=== PATIENT | female | born 2000 | race Two or more races ===

== ENCOUNTER 2025-04-25 10:54 | Outpatient (AMB) | payer OTHER, SELFPAY ==
--- NOTE | 2025-04-25 10:55 | MHC.PC.OV ---
Vital Signs 04/25/25 11:02 Height 5 ft 5 in Weight 126 lb 6 oz BMI 21.0 BP 118/68 Blood Pressure Location Lt brachial Position Sitting Respiration 12 Pulse 81 Pulse Source Pulse Oximeter Temp 97.7 F Temp Source Oral Pulse Oximetry (%) 99 Oxygen Delivery Method Room Air Intake Visit Reasons: CPE Intake Note: New patient to establish care and cpe. Cashier And Waiter/Waitress Required: No Allergies No Known Allergies Allergy (Verified 04/25/25 11:08) Medication List - Last Reconciled 04/25/25 by DANYELLE Huang No Known Home Meds Tobacco use date assessed: 04/25/25 Dental Screening Dental Screen Date: 04/25/25 Did you have a dental visit in the last 12 months?: Yes Did you have a dental problem in the last 6 months where you did not have access to dental care?: No Was dental information given to patient?: Patient has dentist HPI HPI Comments History of Present Illness Details Vanessa 25 y/o f with ALEXANDRA, so stated ADHD, hx of MVP Surgery: wisdom tooth extraction Fhx: Mom alive and well; Dad alive and well. 2 1/2 brothers alive and well; No children. Social: Lives w/ boyfriend. 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 - Symptoms, including palpitations with some associated pain, began around 2018. - She was previously followed by a shift manager in [place] and was prescribed medication to be taken as needed, but she reports never taking it. - The last cardiac imaging was an echocardiogram performed approximately a year and a half ago. - She does not have her medical records from [place] available today but may be able to obtain them. Attention-Deficit/Hyperactivity Disorder (ADHD): - The patient reports a diagnosis of ADHD from four years ago, and also possibly from a therapist about a year ago. - She has never been on medication for this condition. - The patient has requested medical records from a therapist she saw a year ago but has not yet received them. - She expresses a desire for medication, specifically a non-stimulant like Strattera, as stimulants are contraindicated due to her heart condition. - She does not believe therapy is effective for her ADHD and is not interested in counseling. Anxiety: - The patient screened positive for anxiety and agrees with this finding. - She denies symptoms of depression. - She has never been on medication for anxiety. - She was evaluated for social anxiety with a therapist a year ago but is unsure if a formal diagnosis was made. Past Medical History - Mitral valve prolapse, diagnosed around 2018, with associated palpitations. - Attention-Deficit/Hyperactivity Disorder (ADHD), diagnosed 4 years ago. - Anxiety, possibly social anxiety. - History of fainting spells 3 or 4 years ago when not eating. - No known allergies. Past Surgical History - [place] teeth extraction. - Denies any other surgeries. Family History - Mother: Alive and healthy. - Father: Does not have any medical conditions. - Siblings: Two half-brothers, alive and well. Social History - The patient recently relocated from [place] in October of last year. - She lives with her boyfriend and feels safe at home. 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 - She will be studying full-time starting in May. - She has no children. Health Maintenance - Tdap vaccination: Last received in 2018, up to date. - Influenza vaccination: Last received in 2021; patient declined to update at this time. - Women's health: Recently established care with a head teller at [facility] about two to three weeks ago. - A Pap smear and STD testing were performed, and all results were normal. - Vision: Wears glasses and has established care with an eye doctor. Review of Systems - Cardiovascular: Reports intermittent palpitations with some associated pain. - Constitutional: Reports history of feeling weak or fainting if she does not eat. - Psychiatric: Reports symptoms of anxiety and social anxiety. Denies depression. - Gastrointestinal: Denies issues with bowel movements. - Genitourinary: Denies issues with urination. Physical Exam General: Well developed, well nourished, in no acute distress. Appears stated age. Head: Normocephalic, atraumatic. Eyes: Pupils are equal, round and reactive to light and accommodation. Conjunctivae are clear. Scleras nonicteric bilat. Vision grossly normal. Ears: TMs clear AU, EACS WNL Nose: Patent, without discharge. Neck: No carotid bruit bilat. Supple, no adenopathy or thyromegaly. Breast: Edu on SBE Lungs: Clear to auscultation bilaterally. No rales, rhonchi or wheeze noted. Good air flow in all everett. Heart: Regular rate and rhythm. No murmurs, click, rubs or gallops are noted. Patient reports a history of mitral valve prolapse. Abdomen: Bowel sounds present in all quadrants. The abdomen is soft, nontender, with no masses or organomegaly noted. No hernias are noted. : Deferred. Reviewed recommendations for routine MILITARY SOURCE OPERATIONS SPECIALIST. Patient recently visited a head teller at [facility] in [place], where a Pap smear was performed and results were normal. Pulses: Peripheral pulses are equal and palpable bilaterally. Extremities: No clubbing, cyanosis nor edema is noted. Neurologic: Gait and station normal. Cranial Nerves 2-12 intact. Motor strength grossly symmetrical and intact. No sensory loss. Balance normal. Skin: No rashes, ulcers, or lesions noted. Turgor is good. Skin color is good. Hair and nails are without abnormalities. Valderrama angiomas noted, which are familial. Psych: Normal eye contact, affect and mood appropriate, and normal interactions. Patient is alert and appropriate to context. Reports ADHD diagnosis and positive screenings for anxiety, but denies depression. Results - Pap smear and STD testing: Performed 2-3 weeks ago and reported as normal. Labs pending Medical Decision Making The patient is a 25-year-old female establishing care today. She has several active issues, primarily a history of mitral valve prolapse (MVP) and a self-reported diagnosis of ADHD for which she seeks treatment. Regarding her ADHD, the patient is requesting non-stimulant medication (Strattera) due to her MVP. To proceed with treatment, a formal psychiatric evaluation is required to confirm the diagnosis, as I cannot prescribe based solely on subjective reports or unverified prior diagnoses. Therefore, I am placing a referral to psychiatry for a diagnostic workup. We will proceed with this referral unless the patient provides official medical records detailing a formal diagnostic evaluation, in which case the referral can be canceled. For her MVP, it is essential to review her past cardiology records, including the echocardiogram results, to determine the need for further evaluation or management now that she is under my care. In addition, her screenings were positive for anxiety, but she is not interested in counseling and has not been on medication for it previously. Routine baseline labs will be ordered to screen for underlying conditions. A follow-up visit is scheduled in 8-12 weeks to review records and lab results and adjust the plan accordingly. Plan 1. Wellness Visit And Establishment Of Care - Patient instructed to obtain medical records from her previous shift manager in [place] regarding her mitral valve prolapse for review. - Routine baseline screening labs will be ordered. - Patient will sign up for the [facility] patient portal to communicate with the office and view lab results. - Schedule a follow-up appointment in 8-12 weeks, with the possibility of a sooner appointment if records are received and reviewed. 2. Attention-Deficit/Hyperactivity Disorder (Adhd) - A referral will be placed for a psychiatric evaluation to confirm the diagnosis of ADHD and for a medication assessment. - The patient was advised that this referral will be canceled if she can provide formal diagnostic records that are sufficient for management. - Once a formal diagnosis is established, either by the psychiatrist or through reviewed records, medication management can be initiated in this office. 3. Mitral Valve Prolapse - The patient will request her cardiology records from [place], including her last echocardiogram report. - Review of these records is necessary to determine the next steps for her cardiac care. 4. Anxiety - Patient screened positive for anxiety. - She declined counseling at this time. - Management will be deferred pending the psychiatric evaluation for ADHD, which may also address anxiety symptoms. Patient Instructions - Get baseline screening lab work done today in the office. - Contact your previous doctors in [place] to get your medical records for your heart condition (mitral valve prolapse) and your ADHD diagnosis. - Please physically bring these records to the front office associate so I can review them. - You will be contacted by our referral team to set up an appointment with a psychiatrist for an ADHD evaluation. - Look for an email from our office to sign up for the [facility] adam. You must click the link within 24 hours to create your account for messaging me, viewing lab results, and managing appointments. - Schedule your next appointment at the front office associate for 8 to 12 weeks from now. - If you feel weak or faint during the blood draw, please tell the laboratory scientist so you can lie down. Consent Patient was informed and verbally consented to the use of an ambient scribe for clinic note documentation during this visit. An additional 30 minutes was spent addressing the problem(s) noted at todays visit. This includes time spent before the visit reviewing the chart, time spent during the visit, and time spent after the visit on documentation reviewing laboratory results, diagnostic imaging, medications, performing a medically necessary evaluation, counseling on diagnoses, care coordination, ordering appropriate tests, ordering appropriate medications, review of tests performed by other providers, reporting test results with the patient, communication with other healthcare providers. [facility] Medical History (Updated 04/25/25 @ 11:29 by Katelyn Oviedo [facility]) Acid reflux ADHD Surgical History (Updated 04/25/25 @ 11:09 by Windy Gaytan MA) Hx of colonoscopy (~2022) Family History (Updated 04/25/25 @ 11:07 by Windy Gaytan MA) Maternal Grandmother Diabetes HTN (hypertension) Cancer Cardiovascular disease Mother Diabetes HTN (hypertension) Thyroid disorder Cardiovascular disease Paternal Grandfather Cardiovascular disease Social History (Updated 04/25/25 @ 10:56 by Windy Gaytan MA) Household Members: Significant Other Both parents involved: No Caregiver staying overnight: No Housing: Apartment Are you a primary managed care nurse to a significant other at home: No Do you presently have visiting nurse or other home services: No 75 years or older and lives alone: No Alcohol intake: current Alcohol intake frequency: a few times a month Patient Tobacco Use Status: Never used Tobacco e-Cigarette/Vaping Use: Never Used Second Hand Smoke Exposure: No service: No Current occupational status: employed 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 1. Little interest or pleasure in doing things: several days 2. Feeling down, depressed, or hopeless: not at all 3. Trouble falling or staying asleep, or sleeping too much: not at all 4. Feeling tired or having little energy: nearly every day 5. Poor appetite or overeating: not at all 6. Feeling bad about yourself - or that you are a failure or have let yourself or your family down: not at all 7. Trouble concentrating on things, such as reading the newspaper or watching television: nearly every day 8. Moving or speaking so slowly that other people could have noticed. Or the opposite - being so fidgety or restless that you have been moving around a lot more than usual: several days 9. Thoughts that you would be better off or of hurting yourself in some way: not at all Total score: 8 Depression Screening Interpretation: Positive Depression Screening Follow-up: Existing condition and Community Mental Health Worker F/U Depression Screening Done: Yes 75196 - PHQ-9 Billing: Yes Source: Developed by Drs. Garo Marx, Pari Marsh, Demario Rojas and colleagues, with an educational isidro from [employer]. Thrive Questionnaire Date Thrive assessed: 04/25/25 I am a: Patient What is your living situation today?: I have a steady place to live Within the past 12 months, did the food you bought not last and you didn't have the money to get more?: Never true Within the past 12 months, did you worry whether your food would run out before you got money to buy more?: Never true Do you have trouble paying for medicines?: No Do you have trouble getting transportation to medical appointments?: No Do you have trouble paying your heating and electricity bill?: No Do you have trouble taking care of your child, family member or friend?: No Do you have trouble with day-to-day activities such as bathing, preparing meals, shopping, managing finances, etc.?: No Are you currently unemployed and looking for a job?: No Are you interested in more education?: Yes Please select the resources that you would like help with: None Currently or been in a relationship where the following occur: No concerns reported THRIVE Score: 0 AUDIT C Alcohol Use Questionnaire (AUDIT-C) 1. How often do you have a drink containing alcohol?: 2-4 times a month 2. How many drinks containing alcohol do you have on a typical day when you are drinking?: 1 or 2 3. How often do you have six or more drinks on one occasion?: Never Total Score: 2 Score Reviewed/Action Taken: Yes ALEXANDRA-7 AMB Questionnaire ALEXANDRA-7 Date ALEXANDRA - 7 assessed: 04/25/25 Feeling nervous, anxious, or on edge: 1 = Several days Not being able to stop or control worryin = Several days Worrying too much about different things: 1 = Several days Trouble relaxin = Several days Being so restless that it is hard to sit still: 1 = Several days Becoming easily annoyed or irritable: 3 = Nearly every day Feeling afraid as if something awful might happen: 0 = Not at all Total ALEXANDRA-7 score (0-4 normal; 5-9 mild; 10-14 moderate; 15-21 severe): 8 Source: Developed by Drs. Garo Marx, Pari Marsh, Demario Rojas and colleagues, with an educational isidro from [employer]. ALEXANDRA-7 Assessment Billing ALEXANDRA-7 Assessment Tool: ALEXANDRA-7 Assessment 52446 Physical exam (Primary Care) Vital Signs: Last Vital Signs Temp 97.7 F 04/25/25 11:02 Pulse 81 04/25/25 11:02 Resp 12 04/25/25 11:02 BP 118/68 04/25/25 11:02 Pulse Ox 99 04/25/25 11:02 Oxygen Delivery Method Room Air 04/25/25 11:02 BMI result Body Mass Index 21.0 Tobacco/Smoking Status: Tobacco use Status Tobacco use date assessed 04/25/25 04/25/25 10:58 Patient Tobacco Use Status Never used Tobacco 04/25/25 10:58 e-Cigarette/Vaping Use Never Used 04/25/25 10:58 PHQ-9: PHQ-9 Score PHQ-9: Total score 8 04/25/25 10:58 Depression Screening Interpretation: Positive Depression Screening Follow-up: Existing condition and Community Mental Health Worker F/U Thrive Assessment: Date of Thrive Assessment Date Thrive assessed 04/25/25 04/25/25 10:58 Currently or been in a relationship where the following occur: No concerns reported Coding Level of Care Code New Pt Level 3 (31559) New Pt Prev Care 18-39yr(58977 Diagnoses Encounter to establish care with new provider Z76.89 ALEXANDRA (generalized anxiety disorder) F41.1 ADHD (attention deficit hyperactivity disorder) evaluation Z13.39 Influenza vaccination declined Z28.21 History of Papanicolaou smear of cervix Z92.89 Laboratory exam ordered as part of routine general medical examination Z00.00 Adult general medical exam Z00. History of mitral valve prolapse Z86.79 Additional Codes ALEXANDRA-7 Assessment Billing - ALEXANDRA-7 Assessment Tool: ALEXANDRA-7 Assessment 76760 ([id number]) PHQ-9 - 47498 - PHQ-9 Billing: Yes ([id number]) Assessment & Plan Assessment & Plan (1) Encounter to establish care with new provider: Code(s): Z76.89 - Persons encountering health services in other specified circumstances (2) ALEXANDRA (generalized anxiety disorder): Code(s): F41.1 - Generalized anxiety disorder Category: Medical (3) ADHD (attention deficit hyperactivity disorder) evaluation: Code(s): Z13.39 - Encounter for screening examination for other mental health and behavioral disorders Category: Medical (4) Influenza vaccination declined: Onset Date: ~04/25/25 Code(s): Z28.21 - Immunization not carried out because of patient refusal Category: Medical (5) History of Papanicolaou smear of cervix: Onset Date: ~03/2025 Comment: [facility] [place] Code(s): Z92.89 - Personal history of other medical treatment Category: Medical (6) Laboratory exam ordered as part of routine general medical examination: Code(s): Z00.00 - Encounter for general adult medical examination without abnormal findings Category: Medical (7) Adult general medical exam: Onset Date: ~04/25/25 Code(s): Z00.00 - Encounter for general adult medical examination without abnormal findings Category: Medical (8) History of mitral valve prolapse: Code(s): Z86.79 - Personal history of other diseases of the circulatory system Category: Medical Plan . Orders: Orders Lipid Panel Today Z00.00 - Encounter for general adult medical examination without abnormal findings Vitamin B12 and Folate Today Z00.00 - Encounter for general adult medical examination without abnormal findings Hemoglobin A1c Today Z00.00 - Encounter for general adult medical examination without abnormal findings Complete Blood Count no Diff Today Z00.00 - Encounter for general adult medical examination without abnormal findings Comprehensive Met. Panel Today Z00.00 - Encounter for general adult medical examination without abnormal findings Microalbumin, Random (w Creat) Today Z00.00 - Encounter for general adult medical examination without abnormal findings TSH reflex Free T4 Today Z00.00 - Encounter for general adult medical examination without abnormal findings Vitamin D 25-OH Total Today Z00.00 - Encounter for general adult medical examination without abnormal findings Referrals Nurse Navigator Referral F33.1 - Major depressive disorder, recurrent, moderate, F41.1 - Generalized anxiety disorder, Z13.39 - Encounter for screening examination for other mental health and behavioral disorders Patient Instructions: Walk-In Care (Urgent Care): We Make it Easy Walk-in for urgent medical issues such as: ? Seasonal Allergies ? Insect Bites ? Cough ? Diarrhea ? Acute Asthma Attacks ? Back, Knee or Joint Pain ? Ear Infection ? Fever without a Rash ? Headaches ? Nausea ? [place] Eye, Rash or Skin Irritation ? Sore Throat ? Sports Physicals ? Vomiting Most insurances are accepted. Patients do not need to be part of the [facility] to seek care at the walk-in clinic. Locations [address] [place] [address] Open Wednesday through Wednesday 8am-5pm *Hours may vary due to staffing availability. To confirm Walk-In Care hours please call. [facility] , [place] [address] ? [phone] [facility] Walk-In Care in [place] provides services to ages 18 and over. Open Wednesday-Wednesday: 7 a.m. to 5 p.m. and Wednesday: 9 a.m. to 3 p.m.* *Hours may vary due to staffing availability. To confirm Walk-In Care hours in [place], please call [phone]. [address] [place] [address] ? [phone] [facility] Walk-In Care in [place] provides services to ages 12 and over. Open Wednesday-Wednesday: 8 a.m. to 5 p.m. Hours may vary due to staffing availability. To confirm Walk-In Care hours in [place], please call [phone]. LABORATORY SERVICES: [facility] ? Primary Location [address] [place] [address] Wednesday through Wednesday 6:00 AM ? 5:00 PM Wednesday 7:00 AM ? 11:00 AM* [phone] The [facility] is centrally located near the front entrance of the [facility] for easy outpatient access. Convenient parking is provided for outpatients. *Hours may vary due to staffing availability. To confirm Laboratory hours for any location, please call [phone]. Offsite Location For your convenience, we offer offsite laboratory draw stations at the following locations: [address] [facility] [place] [address] [facility] [address], [place] Wednesday through Wednesday 7:30 AM ? 1:00 PM* [phone] *Hours may vary due to staffing availability. To confirm Laboratory hours for any location, please call [phone]. [place] ? [facility] [address] [facility], [place] Wednesday through Wednesday 6:00 AM ? 3:30 PM* Wednesday 6:30 AM ? 3 PM* [phone] *Hours may vary due to staffing availability. To confirm Laboratory hours for any location, please call [phone]. [address] [facility] Wednesday through Wednesday 7:30 AM ? 4:00 PM* [phone] *Hours may vary due to staffing availability. To confirm Laboratory hours for any location, please call [phone] [place] [address] Wednesday through 9:00 AM ? 4:00 PM* *Hours may vary due to staffing availability. To confirm Laboratory hours for any location, please call [phone]. Appointments are not necessary. Walk-ins are welcome. Like all the departments throughout the [facility], our Lab undergoes frequent reviews to ensure the quality and accuracy of test results, and our staff takes special pride in its status as a nationally accredited facility. Patient Portal: [facility] ONE PATIENT. ONE RECORD. BETTER CARE. [facility] has a fully integrated, cutting-edge mobile electronic health information system that has revolutionized the way we care for our patients and manage our organization. This system improves communication and coordination enabling us to provide safe, higher-quality care, and an overall positive experience for staff and patients. Our first priority, as always, is to deliver the highest quality care possible. The system is running in the background supporting that priority. This portal is for all [facility] services and practices. If you are experiencing any technical difficulties with enrolling or logging into the Patient Portal please complete the [facility] Patient Portal Technical Support Form. [facility] now offers a new secure on-line interactive tool for patients to review their health information ? ?Patient Portal. This interactive web portal will enable patients and their families to take an active role in their care by providing easy, secure access to their health information via the internet. The Patient Portal provides patients with instant access to their health information, including laboratory results, medications, allergies, demographic information, visit history, and more. In addition to managing their own care, parents and health care proxies with authorized consent will appreciate the ability to access the records of those individuals for whom they provide care. Please note: if you wish to gain access (Proxy) to another patient?s portal, you will be required to come to the Medical Records Department in person at [facility]. Both the patient giving proxy access and the proxy will need to provide photo identification and complete the appropriate authorization. The Patient Portal also allows track their appointments online. The [facility] Patient Portal also saves patients time by allowing them to submit updates to their demographic and contact information prior to their visits. Portal email notifications will also alert patients to any new activity on their portal, such as test results and new appointments. In order to initially enroll in the [facility] Patient Portal, you will need to enter some required information including the following: your [facility] Medical Record number your personal home email address name date of Please note: In order to enroll in the [facility] Patient Portal, we need to have your email address on file in your electronic medical record. ?The email address needs to be specific for one person (yourself) in order for your Portal enrollment to be successful. ?You can update your email address in person with our Registration staff when you are registering for a hospital visit. ?Otherwise, you will need to come to the Health Information Management (Medical Records) Department at [facility]. ?We are open from Wednesday ? Wednesday from 7:30 a.m. ? 4:30 p.m. ?You will be required to present a photo id. Once you have successfully enrolled in the Patient Portal, you will receive a one-time user id and password for the Portal, sent to your email address. ?This will allow you to log into the Patient Portal within 99 hrs and reset your own logon id and password, and define personal security questions. ?Once your permanent login and password have been set, you can log into the [facility] Patient Portal at any time via the blue button above or from the Portal Logon button on any page of the [facility] website. [facility] and [facility] encourage all of our patients to enroll in Patient Portal as it presents a valuable opportunity for patients and their families to actively participate in their care and stay healthy Welcome to [facility]. ?We look forward to working with you. Health screenings for women You should visit your health care provider from time to time, even if you are healthy. The purpose of these visits is to: Screen for medical issues Assess your risk for future medical problems Encourage a healthy lifestyle Update vaccinations and other preventive care services Help you get to know your provider in case of an illness Information Even if you feel fine, you should still see your provider for regular checkups. These visits can help you avoid problems in the future. For example, the only way to find out if you have high blood pressure is to have it checked regularly. High blood sugar and high cholesterol levels also may not have any symptoms in the early stages. A simple blood test can check for these conditions. There are specific times when you should see your provider or receive specific health screenings. The [place] Preventive Services Task Force publishes a list of recommended screenings. Below are screening guidelines for women ages 18 to 39. BLOOD PRESSURE SCREENING Your blood pressure should be checked at least once every 3 to 5 years if: Your blood pressure is in the normal range (top number less than 120 mm Hg and bottom number less than 80 mm Hg) You don't have risk factors for high blood pressure Ask your provider if you need your blood pressure checked more often if: The top number is 120 to 129 mm Hg or the bottom number is 70 to 79 mm Hg You have diabetes, heart disease, kidney problems, are overweight, or have certain other health conditions You have a first-degree relative with high blood pressure You are Black You had high blood pressure during a If the top number is 130 mm Hg or greater or the bottom number is 80 mm Hg or greater, this is considered stage 1 hypertension. Schedule an appointment with your provider to learn how you can reduce your blood pressure. Watch for blood pressure screenings in your area. Ask your provider if you can stop in to have your blood pressure checked. BREAST CANCER SCREENING Experts do not agree about the benefits of breast self-exams in finding breast cancer or saving lives. Talk to your provider about what is best for you. A screening mammogram is not recommended for most women under age 40. Your provider may discuss and recommend mammograms, MRI scans, or ultrasounds if you have an increased risk for breast cancer, such as: A mother or sister who had breast cancer at a young age (most often starting screening earlier than the age the close relative was diagnosed) You carry a high-risk genetic marker CERVICAL CANCER SCREENING Cervical cancer screening should start at age 21 years unless your provider advises otherwise. After the first test: Women ages 21 through 29 should have a Pap test every 3 years. Exoprts do not agree on whether HPV testing is recommended for this age group. Women ages 30 through 65 should be screened with either a Pap test every 3 years or the HPV test every 5 years or both tests every 5 years (called cotesting ). Women who have been treated for precancer (cervical dysplasia) should continue to have Pap tests for 20 years after treatment or until age 65, whichever is longer. If you have had your uterus and cervix removed (total hysterectomy), and you have not been diagnosed with cervical cancer or precancer (high grade cervical neoplasia), you do not need cervical cancer screening. CHOLESTEROL SCREENING Cholesterol screening should begin at: Age 45 for women with no known risk factors for coronary heart disease Age 20 for women with known risk factors for coronary heart disease Repeat cholesterol screening should take place: Every 5 years for women with normal cholesterol levels More often if changes occur in lifestyle (including weight gain and diet) More often if you have diabetes, heart disease, kidney problems, or certain other conditions DIABETES SCREENING You should be screened for diabetes starting at age 35 and then repeated every 3 years if you have no risk factors for diabetes. Screening may need to start earlier and be repeated more often if you have other risk factors for diabetes, such as: You have a first degree relative with diabetes. You are overweight or have obesity. You have high blood pressure, prediabetes, or a history of heart disease. Screening for diabetes should be done if you are planning to become and you are overweight and have other risk factors such as high blood pressure. DENTAL EXAM Go to the dentist once or twice every year for an exam and cleaning. Your dentist will evaluate if you need more frequent visits. EYE EXAM Have an eye exam every 5 to 10 years before age 40. If you have vision problems, have an eye exam every 2 years or more often if recommended by your provider. You should have an eye exam that includes an examination of your retina (back of your eye) at least every year if you have diabetes. IMMUNIZATIONS Commonly needed vaccines include: Flu shot: get one every year. COVID-19 vaccine: ask your provider what is best for you. Tetanus-diphtheria and acellular pertussis (Tdap) vaccine: have one at or after age 19 as one of your tetanus-diphtheria vaccines if you did not receive it as an adolescent. Tetanus-diphtheria: have a booster (or Tdap) every 10 years. Varicella vaccine: receive 2 doses if you never had chickenpox or the varicella vaccine. Hepatitis B vaccine: receive 2, 3, or 4 doses, depending on your exact circumstances. Measles, mumps, and rubella (MMR) vaccine: receive 1 to 2 doses if you are not already immune to MMR. Your provider can tell you if you are immune. Ask your provider about the human papillomavirus (HPV) vaccine if: You have not received the HPV vaccine in the past You have not completed the full vaccine series (you should catch up on this shot) Ask your provider if you should receive other immunizations if you have certain health problems that increase your risk for some diseases such as pneumonia. INFECTIOUS DISEASE SCREENING Women who are sexually active should be screened for chlamydia and gonorrhea up until age 25. Women 25 years and older should be screened for chlamydia and gonorrhea if at high risk. Screening for hepatitis C: All adults ages 18 to 79 should get a one-time test for hepatitis C. people should be screened at every . Screening for human immunodeficiency virus (HIV): All people ages 15 to 65 should get a one-time test for HIV. Depending on your lifestyle and medical history, you may also need to be screened for infections such as syphilis and HIV, as well as other infections. PHYSICAL EXAM All adults should visit their provider from time to time, even if they are healthy. The purpose of these visits is to: Screen for disease Assess your risk of future medical problems Encourage a healthy lifestyle Update your vaccinations and other preventive care services Maintain a relationship with a provider in case of an illness Your height, weight, and BMI should be checked at every exam. During your exam, your provider may ask you about: Depression and anxiety Diet and exercise Alcohol and tobacco use Safety issues, such as using seat belts, smoke detectors, and intimate partner violence Your medicines and risk for interactions SKIN SELF-EXAM Your provider may check your skin for signs of skin cancer, especially if you're at high risk, such as if you: Have had skin cancer before Have close relatives with skin cancer Have a weakened immune system OTHER SCREENING Talk with your provider about colon cancer screening if you have a strong family history of colon cancer or polyps, or if you have had inflammatory bowel disease or polyps yourself. Routine bone density screening of women under 40 is not recommended.
[2025-04-25 11:02] VITALS: BP 118/68; PULSE 81; RESP 12; TEMP 36.5; O2SAT 99; BMI 21.0
== END 2025-04-25 11:29 | disposition home or self-care (01) ==
LOC: HO.HMCFM 10:55
PROVIDERS: PCP Nurse Practitioner Family; Visit Provider Nurse Practitioner Family
DX: Z00.00 Encounter for general adult medical examination without abnormal findings (principal); F41.1 Generalized anxiety disorder; Z13.39 Encounter for screening examination for other mental health and behavioral disorders; Z28.21 Immunization not carried out because of patient refusal; Z86.79 Personal history of other diseases of the circulatory system

== ENCOUNTER 2025-04-25 10:54 | Outpatient (REF) | payer OTHER, SELFPAY ==
[2025-04-25 15:31] LABS: Hematocrit 39.1 % (37.0-47.0); Hemoglobin 12.9 g/dl (12.0-16.0); Mean Corpuscular HGB Conc 33.0 g/dl (31.0-35.0); Mean Corpuscular Hemoglobin 31.1 pg (27.0-33.0); Mean Corpuscular Volume 94.2 fL (80.0-98.0); NRBC Abs Auto 0.000 X10*3/uL (0.0-0.012); NRBC Pct Auto 0.0 /100WBC (0.0-0.2); Platelet Count 285 X10*3/uL (160-400); Red Blood Count 4.15 X10*6/uL (4.20-5.50); White Blood Count 7.4 X10*3/uL (4.8-10.8)
[2025-04-25 16:23] LABS: Alanine Aminotransferase 17 U/L (0-31); Albumin Level 4.5 g/dL (3.5-5.0); Alkaline Phosphatase 83 U/L (39-117); Anion Gap 11 (12-20); Aspartate Amino Transferase 21 U/L (5-31); Blood Urea Nitrogen 14 mg/dL (9-16); Calcium 9.0 mg/dL (8.4-10.2); Carbon Dioxide 25 mmol/L (22-29); Chloride 107 mmol/L (96-108); Cholesterol 166 mg/dL (<200); Estimated Glomerular Filt Rate > 60; HDL Cholesterol 53 mg/dL (>40); Potassium 3.8 mmol/L (3.3-5.1); Sodium 139 mmol/L (135-145); Total Protein 7.0 g/dL (6.5-8.0); Triglycerides 85 mg/dL (<150)
[2025-04-25 16:35] LABS: Microalbum/Creatinine Ratio Ur 5.0 ug/mg cr (<30)
[2025-04-25 17:31] LABS: Folate 10.4 ng/mL (> or = 4.0); Vitamin B12 455 pg/mL (200-900)
== END 2025-04-25 10:55 | disposition home or self-care (01) ==
LOC: HO.WFDLDS 10:54
PROVIDERS: PCP Nurse Practitioner Family; Visit Provider Nurse Practitioner Family
DX: Z00.00 Encounter for general adult medical examination without abnormal findings (principal); Z13.39 Encounter for screening examination for other mental health and behavioral disorders; Z76.89 Persons encountering health services in other specified circumstances; Z28.21 Immunization not carried out because of patient refusal; F41.1 Generalized anxiety disorder; Z92.89 Personal history of other medical treatment; Z86.79 Personal history of other diseases of the circulatory system
CPT/HCPCS: 36415; 80053; 80061; 82043; 82306; 82570; 82607; 82746; 83036; 84443; 85027; 96127